=== PATIENT | female | born 1960 | race Caucasian/White ===

== ENCOUNTER → 2018-05-27 | Outpatient (CLI) | payer BC ==
[~2018-05-27] MED LIST: COZAAR 25MG25 MG/TAB PO; PREVACID 15MG15 M1 PO
== END ==
LOC: MC.RAD 06:56
DX: Z12.31 Encounter for screening mammogram for malignant neoplasm of breast (principal)

== ENCOUNTER → 2019-08-24 | Outpatient (CLI) | payer BC | LOC: COL.RAD 07:04 | DX: M16.11 Unilateral primary osteoarthritis, right hip (principal); M25.451 Effusion, right hip ==

== ENCOUNTER → 2019-09-22 | Outpatient (CLI) | payer BC | LOC: COL.RAD 08:29 | DX: N83.201 Unspecified ovarian cyst, right side (principal) ==

== ENCOUNTER → 2021-09-18 | Outpatient (CLI) | payer BC | LOC: MC.RAD 07:23 | DX: Z12.31 Encounter for screening mammogram for malignant neoplasm of breast (principal) ==